=== PATIENT | female | born 1950 | race Caucasian/White ===

== ENCOUNTER 2016-12-12 22:52 | Inpatient (IN) | payer OTHER ==
[~2016-12-12] VITALS: Ht 157.5 cm; Wt 82.0 kg
[2016-12-12 23:41] VITALS: BP 124/65; RESP 18
[2016-12-12 23:42] VITALS: BMI 72.9
[2016-12-13] VITALS: BP 124/66; PULSE 64
[2016-12-13] MEDS ORDERED: ONDANSETRON 4 MG INJ IV PRN
[2016-12-13] MEDS ORDERED: NACL 0.9% 3 ML SYG IV SCH
[2016-12-13] MEDS ORDERED: ACETAMINOPHEN 325 MG TAB PO PRN
[2016-12-13] MEDS ORDERED: morphine 2 MG INJ IV PRN
[2016-12-13] MEDS ORDERED: DOCUSATE SODIUM 100 MG CAP PO PRN
--- NOTE | 2016-12-13 00:15 | HP ---
Date/Time of Note Date/Time of Note DATE: 12/13/16 TIME: 00:06 Assessment/Plan VTE Prophylaxis VTE Prophylaxis Intervention: LMWH Assessment/Plan Assessment/Plan 66 yo female with a past medical history of type II DM, CAD s/p PCI 2014, who presents with shortness of breath and pleuritic chest pain. 1. Sepsis 2/2 to [facility] PNA - fever 101.5/Resp > 20, with leukocytosis, will admit the patient to med/surg, c/w levaquin, f/u outside cultures, monitor trend 2. Type II DM - controlled - ISS/carb controlled diet 3. CAD s/p PCI - aspirin 4. GI ppx - pepcid 5. DVT ppx - lovenox answered all of her questions, as per clinical course. this history and physical took greater then 45 minutes to complete HPI/ROS Admit Date/Time Admit Date/Time Dec 13, 2016 at 12:06 am Hx of Present Illness 66 yo female with a past medical history of type II DM, CAD s/p PCI 2014, who presents with shortness of breath and pleuritic chest pain. The patient states that for the last 4 days, she has had fevers/chills, nausea with 3 episodes of NBNB vomitus, associated with the shortness of breath. He chest pain is worse with cough and deep inspiration. The cough is productive, with greenish sputum. Her grandchildren were ill recently. Also complains of dizziness, fatigue, muscle aches and malaise. She went to [facility] for initial work-up and transferred here to [facility] for further evaluation and treatment 2/2 to insurance purposes. She denies loss of consciousness, cardiac type chest pain, diarrhea, urinary/bowel irregularities or other constitutional symptoms. [facility] labs: WBC: 15.8, Gluc 189 CXR: RML infiltrate ROS 14 point review of systems completed, please refer to HPI for any positive findings PMH/Family/Social Past Medical History Medical History: coronary artery disease, diabetes Past Surgical History s/p C with PCI 2014 Family History Significant Family History: heart disease (father), diabetes (father), hypertension (father) Social History Alcohol Use: none Smoking Status: Never smoker Drug Use: none Exam/Review of Systems Vital Signs Vitals Vital Signs Date Time Temp Pulse Resp B/P Pulse Ox O2 Delivery O2 Flow Rate FiO2 12/12/16 23:41 98.8 64 18 124/65 94 Exam Exam Gen Jeyson: mild distress 2/2 chest discomfort, AAOx4, obese female HEENT: NC/AT, PERRLA, EOMI, no pharyngeal erythema, no tonsillar exudates, no lymphadenopathy, no JVD, no carotid bruits NECK: supple, no thyromegaly THORAX: symmetrical, no obvious deformities CV: S1S2, RRR, no M/G/R Lungs: rhonchi on Right > left, mild end expiratory wheezing noted, no crackles Abd: soft, NT/ND, +BS, no rebound, no guarding, neg HSM EXT: trace bilateral lower extremity edema, no ecchymosis, no clubbing, FROM Neuro: CN II-XII grossly intact, no focal deficits Psych: good mentation, alert and oriented, good mood and affect Skin: C/D/I Medications Medications Current Medications Ondansetron HCl (Zofran Inj) 4 mg Q6H PRN IV NAUSEA AND/OR VOMITING; Start at 00:00; Status UNV Acetaminophen (Tylenol Tab) 650 mg Q6H PRN PO PAIN LEVEL 1-3 OR FEVER; Start at 00:00; Status UNV Morphine Sulfate (morphine) 2 mg Q4H PRN IV SEVERE PAIN LEVEL 7-10; Start 12/13 at 00:00; Status UNV Docusate Sodium (Colace) 100 mg Q12H PRN PO CONSTIPATION; Start 12/13/16 at 00: 00; Status UNV Famotidine (Pepcid) 20 mg Q12 PO ; Start 12/13/16 at 09:00; Status UNV Enoxaparin Sodium 40 mg 40 mg DAILY SC ; Start 12/13/16 at 09:00; Status UNV Levofloxacin/ Dextrose (Levaquin 500mg/ D5W 100 ml (Pmx)) 100 ml @ 100 mls/hr Q24H IVPB ; Start 12/13/16 at 00:00; Status UNV LAKESHA RAMIREZ MD Dec 13, 2016 00:14
[2016-12-13 01:11] VITALS: Ht 157.5 cm; Wt 82.0 kg
[2016-12-13] MEDS ORDERED: DEXTROSE 50% 50 ML SYRINGE IV PRN ×2 (02:00)
[2016-12-13] MEDS ORDERED: GLUCAGON 1 MG INJ IM PRN (02:00)
[2016-12-13] MEDS ORDERED: GLUCOSE GEL 15 GRAM TUBE PO PRN ×2 (02:00)
[2016-12-13] MEDS ORDERED: GLUCOSE GEL 15 GRAM TUBE BUCCAL PRN (02:00)
[2016-12-13] MEDS: LEVOFLOXACIN 500MG/D5W (PMX) 100 ML IVPB SCH (02:12)
[2016-12-13 06:14] LABS: ADD SCAN DIFF NO
[2016-12-13 06:18] LABS: BASOPHILS % 0.4 % (0.0-2.0); EOSINOPHILS # 0.2 10^3/ul (0.0-0.5); EOSINOPHILS % 1.5 % (0.0-7.0); HEMATOCRIT 37.5 % (37.0-47.0); HEMOGLOBIN 11.9 g/dl (12.0-16.0); LYMPHOCYTES # 2.3 10^3/ul (0.8-2.9); LYMPHOCYTES % 21.1 % (15.0-51.0); MEAN CORPUSCULAR HEMOGLOBIN 27.5 pg (29.0-33.0); MEAN CORPUSCULAR HGB CONC 31.7 g/dl (32.0-37.0); MEAN CORPUSCULAR VOLUME 86.6 fl (82.0-101.0); MEAN PLATELET VOLUME 10.2 fl (7.4-10.4); MONOCYTE # 0.7 10^3/ul (0.3-0.9); MONOCYTES % 6.1 % (0.0-11.0); NEUTROPHIL # 7.7 10^3/ul (1.6-7.5); NEUTROPHILS % 70.5 % (39.0-77.0); PLATELET COUNT 205 10^3/UL (140-415); RED BLOOD COUNT 4.33 10^6/ul (4.20-5.40); RED CELL DISTRIBUTION WIDTH 13.6 % (11.5-14.5)
[2016-12-13 06:44] LABS: POTASSIUM 4.5 mmol/L (3.5-5.1)
[2016-12-13 06:47] LABS: CREATININE 0.65 mg/dl (0.44-1.00)
[2016-12-13 07:50] VITALS: BP 140/64; RESP 18
[2016-12-13] MEDS: FAMOTIDINE 20 MG TAB PO SCH ×2 (08:26→20:22)
[2016-12-13] MEDS: INSULIN ASPART [NOVOLOG] 3 ML PEN SC SCH ×4 (08:27→20:26)
[2016-12-13] MEDS: ENOXAPARIN 40 MG/0.4 ML SYG SC SCH (08:27)
[2016-12-13] MEDS: OSELTAMIVIR 75 MG CAP PO SCH ×2 (11:34→20:23)
[2016-12-13 14:03] LABS: ADD UMIC YES; URINE BILIRUBIN (Dip) NEGATIVE (NEGATIVE); URINE BLOOD (Dip) TRACE (NEGATIVE); URINE COLOR LT. YELLOW (YELLOW); URINE GLUCOSE (Dip) NEGATIVE (NEGATIVE); URINE KETONES (Dip) NEGATIVE (NEGATIVE); URINE LEUKOCYTE ESTERASE (Dip) NEGATIVE (NEGATIVE); URINE NITRITE (Dip) NEGATIVE (NEGATIVE); URINE TOTAL PROTEIN (Dip) NEGATIVE (NEGATIVE); URINE UROBILINOGEN (Dip) 1.0 E.U./dL (0.1-1.0)
[2016-12-13 14:24] LABS: SQUAMOUS EPITHELIAL CELL,UR FEW
[2016-12-13] MEDS ORDERED: ASPI81TA3 PO (17:41)
[2016-12-13] MEDS ORDERED: ATOR80TA75 PO (17:42)
[2016-12-13] MEDS ORDERED: METF850T PO (17:47)
[2016-12-13] MEDS ORDERED: GLIP5TAB13 PO (17:47)
[2016-12-13] MEDS ORDERED: LANT3I SC (17:52)
[2016-12-13] MEDS ORDERED: INSU100I7 SQ (17:52)
[2016-12-13] MEDS ORDERED: METO-429 PO (17:52)
[2016-12-13] MEDS ORDERED: LEVO25TA53 PO (17:52)
[2016-12-13 18:22] LABS: ALBUMIN 3.8 g/dl (3.3-4.9)
[2016-12-13 18:25] LABS: BILIRUBIN,INDIRECT 0.3 mg/dl (0-1.1); BILIRUBIN,TOTAL 0.3 mg/dl (0.2-1.3); TOTAL PROTEIN 6.7 g/dl (6.1-8.1)
[2016-12-13] MEDS ORDERED: INSULIN GLARGINE [LANtus] 3 ML PEN SC SCH (19:30)
[2016-12-13] MEDS: metFORMIN 850 MG TAB PO SCH (19:39)
[2016-12-13] MEDS: ATORVASTATIN 40 MG TAB PO SCH (20:23)
[2016-12-13] MEDS: METOPROLOL 50 MG TAB PO SCH (20:23)
[2016-12-13 22:27] VITALS: BP 131/63; RESP 18
[2016-12-14] MEDS: LEVOFLOXACIN 500MG/D5W (PMX) 100 ML IVPB SCH (02:00)
[2016-12-14] MEDS: ACCUCHECK XX SCH (02:06)
[2016-12-14 05:29] LABS: ADD SCAN DIFF NO
[2016-12-14 05:38] LABS: BASOPHILS % 0.4 % (0.0-2.0); EOSINOPHILS # 0.3 10^3/ul (0.0-0.5); EOSINOPHILS % 4.2 % (0.0-7.0); HEMATOCRIT 37.5 % (37.0-47.0); LYMPHOCYTES # 3.2 10^3/ul (0.8-2.9); LYMPHOCYTES % 39.9 % (15.0-51.0); MEAN CORPUSCULAR HEMOGLOBIN 27.6 pg (29.0-33.0); MEAN CORPUSCULAR VOLUME 86.2 fl (82.0-101.0); MEAN PLATELET VOLUME 9.8 fl (7.4-10.4); MONOCYTE # 0.5 10^3/ul (0.3-0.9); MONOCYTES % 5.8 % (0.0-11.0); NEUTROPHIL # 3.9 10^3/ul (1.6-7.5); NEUTROPHILS % 49.4 % (39.0-77.0); PLATELET COUNT 203 10^3/UL (140-415); RED BLOOD COUNT 4.35 10^6/ul (4.20-5.40); RED CELL DISTRIBUTION WIDTH 13.5 % (11.5-14.5)
[2016-12-14 05:55] LABS: POTASSIUM 4.2 mmol/L (3.5-5.1)
[2016-12-14 05:58] LABS: CALCIUM 9.3 mg/dl (8.4-10.2); CREATININE 0.58 mg/dl (0.44-1.00); MAGNESIUM 1.9 mg/dl (1.7-2.5)
[2016-12-14 05:59] LABS: CHOL/HDL RATIO 4.5 RATIO
[2016-12-14] MEDS: LEVOTHYROXINE 25 MCG TAB PO SCH (06:18)
[2016-12-14] MEDS ORDERED: glipiZIDE 5 MG TAB PO SCH (07:30)
[2016-12-14] MEDS: ENOXAPARIN 40 MG/0.4 ML SYG SC SCH (08:14)
[2016-12-14] MEDS: FAMOTIDINE 20 MG TAB PO SCH ×2 (08:15→22:16)
[2016-12-14] MEDS: metFORMIN 850 MG TAB PO SCH ×2 (08:15→18:48)
[2016-12-14] MEDS: OSELTAMIVIR 75 MG CAP PO SCH ×2 (08:15→22:16)
[2016-12-14] MEDS: INSULIN ASPART [NOVOLOG] 3 ML PEN SC SCH ×4 (08:15→22:15)
[2016-12-14] MEDS: METOPROLOL 50 MG TAB PO SCH ×2 (08:16→22:16)
[2016-12-14] MEDS: ASPIRIN 81 MG TAB PO SCH (08:38)
[2016-12-14 09:00] VITALS: BP 115/58; RESP 17
[2016-12-14] MEDS ORDERED: LEVO500T10 PO (10:05)
--- NOTE | 2016-12-14 10:06 | PDOCDIS ---
Discharge Instructions DIAGNOSIS Discharge Diagnosis: Influenza CONDITION Patient Condition: Stable HOME CARE INSTRUCTIONS: Special Diet: low fat,low cholesterol ACTIVITY: Activity Restrictions: Slowly Increase Activity Rest between Activity OTHER ORDERS: Other Orders: Followup with your primary doctor within the next 1-2 weeks. If you don't have one please let someone know, we can give you resources that may help you pick one. You may also call your insurance company to assign one to you. Review your medication list with your nurse before leaving and if you need new prescriptions please let your nurse know. I may have made changes to your home medications or given you new prescriptions , please let your primary doctor know as well. Stay compliant with your medications and report any side effects to your PCP or pharmacist. Return to the ER if you have any concerns and cannot reach your doctors or call your insurance company, they usually have a nurse that can help you. REFUGIO MURPHY Dec 14, 2016 10:06
[2016-12-14] MEDS ORDERED: UDROBDM PO (10:09)
--- NOTE | 2016-12-14 14:08 | PN ---
Date/Time of Note Date/Time of Note DATE: 12/14/16 TIME: 13:57 Assessment/Plan VTE Prophylaxis VTE Prophylaxis Intervention: LMWH Lines/Catheters IV Catheter Type (from [facility]): [facility] Lock Urinary Cath still in place: No Assessment/Plan Assessment/Plan 66 yo female with a past medical history of type II DM, CAD s/p PCI 2014, who presents with shortness of breath and pleuritic chest pain. 1. Sepsis 2/2 to RML PNA and Flu: improved 2. Type II DM -A1C:8.5: suboptimal control 3. CAD s/p PCI - aspirin 4. Influenza and B positive 5. dyslipidemia 6. Hypothyroidism 7. Mild hemoptysis likely 2/2 intractable coughing + Lovenox PLAN: * Hold Lovenox for now / use SCds only for prophylaxis * Positive bC likely contaminant , will repeat * Continue Influenza precautions and Tamiflu * Add low dose ARB to regimen * Add antitussives to regimen * Continue supportive care and abx * Plan for d/c tomorrow if patient remains stable and fever free. PROPHYLAXIS: SCDs / Pepcid Subjective 24 Hr Interval Summary Free Text/Dictation Patient seen and examined. feels much better but still feels ill having some hemoptysis with coughing Exam/Review of Systems Vital Signs Vitals Vital Signs Date Time Temp Pulse Resp B/P Pulse Ox O2 Delivery O2 Flow Rate FiO2 12/14/16 09:00 98.3 60 17 115/58 95 Intake and Output 12/13/16 12/13/16 12/14/16 15:00 23:00 07:00 Intake Total 720 ml 1060 ml Balance 720 ml 1060 ml Exam Constitutional: alert, oriented, other (ill lookin), No distress Psych: anxiety Head: normocephalic Eyes: PERRL, No icteric ENMT: mucosa pink and moist Neck: supple Respiratory: crackles/rales (mild R lung base), diminished breath sounds (R >>L ) Cardiovascular: regular rate and rhythm, No murmurs/extra sounds Gastrointestinal: bowel sounds, non-tender, soft Extremities: No edema Neurological: nl mental status, nl speech Skin: No rash or lesions Results Result Diagram: 12/14/165 12/14/16 042 Results 24 hrs Laboratory Tests Test 12/13/16 17:21 12/13/16 20:21 12/14/16 02:01 12/14/16 04:25 Bedside Glucose 245 H 264 H 206 Anion Gap 17 H Basophils # 0.0 Basophils % 0.4 Blood Urea Nitrogen 13 Calcium Level 9.3 Carbon Dioxide Level 24 Chloride Level 104 Cholesterol Level 127 Cholesterol/HDL Ratio 4.5 Creatinine 0.58 Eosinophils # 0.3 Eosinophils % 4.2 Glucose Level 204 HDL Cholesterol 28 L Hematocrit 37.5 Hemoglobin 12.0 LDL Cholesterol, Calculated 71 Lymphocytes # 3.2 H Lymphocytes % 39.9 Magnesium Level 1.9 Mean Corpuscular Hemoglobin 27.6 L Mean Corpuscular Hemoglobin Concent 32.0 Mean Corpuscular Volume 86.2 Mean Platelet Volume 9.8 Monocytes # 0.5 Monocytes % 5.8 Neutrophils # 3.9 Neutrophils % 49.4 Nucleated Red Blood Cells # 0.0 Nucleated Red Blood Cells % 0.0 Platelet Count 203 Potassium Level 4.2 Red Blood Count 4.35 Red Cell Distribution Width 13.5 Sodium Level 141 Triglycerides Level 142 White Blood Count 8.0 # Test 12/14/16 07:35 12/14/16 12:16 Bedside Glucose 203 156 Medications Medications Current Medications Ondansetron HCl (Zofran Inj) 4 mg Q6H PRN IV NAUSEA AND/OR VOMITING; Start at 00:00 Acetaminophen (Tylenol Tab) 650 mg Q6H PRN PO PAIN LEVEL 1-3 OR FEVER; Start at 00:00 Morphine Sulfate (morphine) 2 mg Q4H PRN IV SEVERE PAIN LEVEL 7-10 Last administered on 12/13/16 08:01; Admin Dose 2 MG; Start 12/13/16 at 00:00 Docusate Sodium (Colace) 100 mg Q12H PRN PO CONSTIPATION; Start 12/13/16 at 00: 00 Famotidine 20 mg 20 mg Q12 PO Last administered on 12/14/16 08:15; Admin Dose 20 MG; Start 12/13/16 at 09:00 Levofloxacin/ Dextrose (Levaquin 500mg/ D5W 100 ml (Pmx)) 100 ml @ 100 mls/hr Q24H IVPB Last administered on 12/14/16 02:00; Admin Dose 100 MLS/HR; Start at 02:00 Diagnostic Test (Pha) (Accucheck) XX Last administered on 12/14/16 02: 06; Admin Dose 1 EA; Start 12/14/16 at 02:00 Miscellaneous Information 1 ea NOTE XX ; Start 12/13/16 at 02:00 Glucose (Glutose) 15 gm Q15M PRN PO DECREASED GLUCOSE; Start 12/13/16 at 02:00 Glucose (Glutose) 22.5 gm Q15M PRN PO DECREASED GLUCOSE; Start 12/13/16 at 02: 00 Dextrose (D50w Syringe) 25 ml Q15M PRN IV DECREASED GLUCOSE; Start 12/13/16 at 02:00 Dextrose (D50w Syringe) 50 ml Q15M PRN IV DECREASED GLUCOSE; Start 12/13/16 at 02:00 Glucagon (Glucagen) 1 mg Q15M PRN IM DECREASED GLUCOSE; Start 12/13/16 at 02:00 Glucose (Glutose) 15 gm Q15M PRN BUCCAL DECREASED GLUCOSE; Start 12/13/16 at 02 :00 Oseltamivir Phosphate (Tamiflu) 75 mg BID PO Last administered on 12/14/16 08: 15; Admin Dose 75 MG; Start 12/13/16 at 11:30; Stop 12/18/16 at 11:29 Aspirin (Aspirin) 81 mg DAILY PO Last administered on 12/14/16 08:38; Admin Dose 81 MG; Start 12/14/16 at 09:00 Atorvastatin Calcium (Lipitor) 40 mg QHS PO Last administered on 12/13/16 20: 23; Admin Dose 40 MG; Start 12/13/16 at 21:00 Insulin Glargine (Lantus) 25 unit QHS SC Last administered on 12/13/16 19:40; Admin Dose 25 UNIT; Start 12/13/16 at 19:30 Metoprolol Tartrate (Lopressor) 50 mg BID PO Last administered on 12/14/16 08: 16; Admin Dose 50 MG; Start 12/13/16 at 21:00 REFUGIO MURPHY Dec 14, 2016 14:08
[2016-12-14] MEDS: DOCUSATE SODIUM 100 MG CAP PO SCH ×2 (14:22→22:15)
[2016-12-14] MEDS: GUAIFENESIN/DM 5ML CUP PO SCH ×2 (14:23→22:31)
[2016-12-14] MEDS ORDERED: GUAIFENESIN/DM 5ML CUP PO PRN ×2 (14:30)
[2016-12-14] MEDS: ALBUTEROL 0.083% (NEB) 2.5 MG/3 ML AMP HHN SCH ×2 (18:24→21:00)
[2016-12-14] MEDS ORDERED: ALBUTEROL 0.083% (NEB) 2.5 MG/3 ML AMP HHN SCH (18:30)
--- NOTE | 2016-12-14 19:31 | DS ---
DATE OF ADMISSION: 12/12/2016 DATE OF DISCHARGE: 12/14/2016 FINAL DIAGNOSES: 1. Influenza influenzae A and B positive. 2. Right middle lobe pneumonia. 3. Diabetes mellitus type 2. 4. Dyslipidemia. 5. High blood pressure with good control. 6. Chronic coronary artery disease, status post percutaneous coronary intervention in the past. 7. Sepsis secondary to influenza and right middle lobe pneumonia, now resolved. CONSULTANTS ON THE CASE: None. INTERVENTIONS: Aggressive IV antibiotic therapy and commencement of Tamiflu. DISPOSITION: Home. FOLLOWUP: Primary care physician within 1 to 2 weeks. DISCHARGE MEDICATIONS: For a complete list, please review the patient's chart. The patient will be sent home on: 1. Oral Levaquin. 2. Tamiflu. In addition to her home medications. RECOMMENDED DIET: 1800 ADA. ACTIVITIES: As tolerated. Dictated By: REFUGIO MURPHY MD BA/NTS Conf#: [id number] DID#: [id number]
[2016-12-14 20:00] VITALS: BP 140/74; RESP 17
[2016-12-14] MEDS ORDERED: INSULIN GLARGINE [LANtus] 3 ML PEN SC SCH (21:00)
[2016-12-14] MEDS: ATORVASTATIN 40 MG TAB PO SCH (22:16)
[2016-12-15] MEDS: ALBUTEROL 0.083% (NEB) 2.5 MG/3 ML AMP HHN SCH ×4 (01:00→13:00)
[2016-12-15] MEDS: LEVOFLOXACIN 500MG/D5W (PMX) 100 ML IVPB SCH (02:05)
[2016-12-15] MEDS: ACCUCHECK XX SCH (02:05)
[2016-12-15 05:40] LABS: ADD SCAN DIFF NO
[2016-12-15 05:43] LABS: BASOPHILS % 0.3 % (0.0-2.0); EOSINOPHILS # 0.2 10^3/ul (0.0-0.5); EOSINOPHILS % 1.9 % (0.0-7.0); HEMATOCRIT 39.9 % (37.0-47.0); HEMOGLOBIN 12.8 g/dl (12.0-16.0); LYMPHOCYTES # 2.5 10^3/ul (0.8-2.9); LYMPHOCYTES % 22.7 % (15.0-51.0); MEAN CORPUSCULAR HEMOGLOBIN 27.4 pg (29.0-33.0); MEAN CORPUSCULAR HGB CONC 32.1 g/dl (32.0-37.0); MEAN CORPUSCULAR VOLUME 85.3 fl (82.0-101.0); MEAN PLATELET VOLUME 9.7 fl (7.4-10.4); MONOCYTE # 0.4 10^3/ul (0.3-0.9); MONOCYTES % 3.8 % (0.0-11.0); NEUTROPHIL # 7.8 10^3/ul (1.6-7.5); NEUTROPHILS % 70.8 % (39.0-77.0); PLATELET COUNT 214 10^3/UL (140-415); RED BLOOD COUNT 4.68 10^6/ul (4.20-5.40); RED CELL DISTRIBUTION WIDTH 13.2 % (11.5-14.5); WHITE BLOOD COUNT 10.9 10^3/ul (4.8-10.8)
[2016-12-15 06:03] LABS: POTASSIUM 4.5 mmol/L (3.5-5.1)
[2016-12-15 06:05] LABS: CREATININE 0.64 mg/dl (0.44-1.00)
[2016-12-15] MEDS: LEVOTHYROXINE 25 MCG TAB PO SCH ×2 (06:05→08:31)
[2016-12-15] MEDS: GUAIFENESIN/DM 5ML CUP PO SCH ×2 (06:05→13:58)
[2016-12-15 06:06] LABS: CALCIUM 9.7 mg/dl (8.4-10.2)
[2016-12-15] MEDS: metFORMIN 850 MG TAB PO SCH ×2 (08:00→08:19)
[2016-12-15] MEDS: INSULIN ASPART [NOVOLOG] 3 ML PEN SC SCH ×2 (08:21→11:36)
[2016-12-15] MEDS: ASPIRIN 81 MG TAB PO SCH (08:22)
[2016-12-15] MEDS: FAMOTIDINE 20 MG TAB PO SCH (08:23)
[2016-12-15] MEDS: OSELTAMIVIR 75 MG CAP PO SCH (08:24)
[2016-12-15] MEDS: METOPROLOL 50 MG TAB PO SCH (08:24)
[2016-12-15 08:26] VITALS: BP 129/76; RESP 18
[2016-12-15] MEDS: DOCUSATE SODIUM 100 MG CAP PO SCH (09:00)
[2016-12-15] MEDS ORDERED: LOSARTAN 25 MG TAB PO SCH (09:00)
[2016-12-15] MEDS ORDERED: OSLT75C PO (16:20)
--- NOTE | 2016-12-15 16:30 | DS ---
Date/Time of Note Date/Time of Note DATE: 12/15/16 TIME: 16:23 Discharge Summary Admission/Discharge Info Admit Date/Time Dec 12, 2016 at 22:52 Discharge Date/Time Final Diagnosis 1. Influenza influenzae A and B positive - on Tamiflu. 2. Right middle lobe pneumonia - on Levaquin. 3. Diabetes mellitus type 2. 4. Dyslipidemia. 5. High blood pressure with good control. 6. Chronic coronary artery disease, status post percutaneous coronary intervention in the past. 7. Sepsis secondary to influenza and right middle lobe pneumonia, now resolved. Patient Condition: Stable Hospital Course 66 yo female with a past medical history of type II DM, CAD s/p PCI 2014, who presents with shortness of breath and pleuritic chest pain. The patient states that for the last 4 days, she has had fevers/chills, nausea with 3 episodes of NBNB vomitus, associated with the shortness of breath. He chest pain is worse with cough and deep inspiration. The cough was productive, with greenish sputum. Her grandchildren were ill recently. Also complains of dizziness, fatigue, muscle aches and malaise. She went to [facility] for initial work-up and transferred here to [facility] for further evaluation and treatment 11/20 to insurance purposes. She denies loss of consciousness, cardiac type chest pain, diarrhea, urinary/bowel irregularities or other constitutional symptoms. CXR showed RML infiltrate. Pt started on Tamiflu for positive flu A test. Pt ambulating, tolerating PO diet, less cough and less SOb now, no fevers in last 24 hrs. She will be discharged home today in an improved condition. Will follow up with her DM doctor and PMD in clinic in 1-2 weeks. Home Meds Active Scripts Oseltamivir Phosphate* (Tamiflu*) 75 Mg Capsule, 75 MG PO BID for 5 Days, #10 CAP Prov:FLASH WAN S. 12/15/16 Guaifenesin-Dextromethorphan* (Robitussin* DM) 100MG/10MG/5ML Syrup, 10 ML PO Q4H Y for COUGH, #150 ML Prov:REFUGIO MURPHY 12/14/16 Levofloxacin* (Levofloxacin*) 500 Mg Tablet, 500 MG PO DAILY for 5 Days, TAB Prov:REFUGIO MURPHY 12/14/16 Reported Medications Insulin Glargine* (Lantus*) 100 Unit/Ml Soln, 25 UNIT SC QAM, VIAL 12/13/16 Insulin Lispro Protamin/Lispro (Humalog Mix 75-25 Kwikpen) 100 Unit/1 Ml Insuln.pen, 25 UNIT SQ QHS 12/13/16 Levothyroxine Sodium* (Levothyroxine Sodium*) 25 Mcg Tablet, 25 MCG PO BEFORE BREAKFAST, TAB 12/13/16 Metoprolol Tartrate* (Lopressor*) 50 Mg Tab, 50 MG PO BID, TAB 12/13/16 Glipizide* (Glipizide*) 5 Mg Tablet, 5 MG PO AC BREAKFAST, TAB 12/13/16 Metformin Hcl* (Metformin Hcl*) 850 Mg Tablet, 850 MG PO WITH BREAKFAST DINNE, # 60 TAB 12/13/16 Atorvastatin* (Atorvastatin*) 80 Mg Tablet, 40 MG PO QHS, TAB 12/13/16 Aspirin* (Aspirin* Chew) 81 Mg Tab.chew, 81 MG PO DAILY, TAB.CHEW 12/13/16 Pending Labs Laboratory Tests Test 12/14/16 16:52 12/14/16 20:11 12/15/16 02:05 12/15/16 04:47 Bedside Glucose 184mg/dL (70-220) 218mg/dL (70-220) 171mg/dL (70-220) Anion Gap 19 (8-16) Basophils # 0.010^3/ul (0.0-0.1) Basophils % 0.3% (0.0-2.0) Blood Urea Nitrogen 18mg/dl (7-20) Calcium Level 9.7mg/dl (8.4-10.2) Carbon Dioxide Level 25mmol/L (21-31) Chloride Level 101mmol/L (97-110) Creatinine 0.64mg/dl (0.44-1.00) Eosinophils # 0.210^3/ul (0.0-0.5) Eosinophils % 1.9% (0.0-7.0) Glucose Level 236mg/dl (70-220) Hematocrit 39.9% (37.0-47.0) Hemoglobin 12.8g/dl (12.0-16.0) Lymphocytes # 2.510^3/ul (0.8-2.9) Lymphocytes % 22.7% (15.0-51.0) Mean Corpuscular Hemoglobin 27.4pg (29.0-33.0) Mean Corpuscular Hemoglobin Concent 32.1g/dl (32.0-37.0) Mean Corpuscular Volume 85.3fl (82.0-101.0) Mean Platelet Volume 9.7fl (7.4-10.4) Monocytes # 0.410^3/ul (0.3-0.9) Monocytes % 3.8% (0.0-11.0) Neutrophils # 7.810^3/ul (1.6-7.5) Neutrophils % 70.8% (39.0-77.0) Nucleated Red Blood Cells # 0.010^3/ul (0.0-0.0) Nucleated Red Blood Cells % 0.0/100WBC (0.0-0.0) Platelet Count 12022^3/UL (140-415) Potassium Level 4.5mmol/L (3.5-5.1) Red Blood Count 4.6810^6/ul (4.20-5.40) Red Cell Distribution Width 13.2% (11.5-14.5) Sodium Level 140mmol/L (135-144) White Blood Count 10.910^3/ul (4.8-10.8) Test 12/15/16 07:34 12/15/16 11:07 Bedside Glucose 245mg/dL (70-220) 202mg/dL (70-220) FLASH WAN Dec 15, 2016 16:29
--- NOTE | 2016-12-16 13:17 | RADRPT ---
Echocardiogram Report Patient Name: CHAVEZ SANCHEZ Gender: Female Date: 1950 Study Date: 15-Dec-2016 Head Automatic Sawyer: Avinash Dupree [facility] Location: 2247 Ref. Physician: REFUGIO MURPHY Quality: Good Procedures: Transthoracic echocardiogram with complete 2D, M-Mode, and doppler examination. Indications: Coronary Artery Disease. Shortness of breath. 2D/M Mode Doppler Measurement Value Normal Ranges Measurement Value Normal Ranges LVIDd 2D 5.0 3.5 - 5.6 cm AV Peak Venkat 1.7 m/sec LVIDs 2D 2.1 2.1 - 4.1 cm AV Peak PG 11.6 mmHg LVPWd 2D 1.1 0.6 - 1.1 cm LVOT Peak Venkat 1.3 m/sec IVSd 2D 1.1 0.6 - 1.1 cm LVOT Peak PG 6.3 mmHg AoR Diam 2D 2.0 2.0 - 3.7 cm MV E Peak Venkat 0.8 m/sec EDV 2D 116.0 cm3 MV A Peak Venkat 0.9 m/sec ESV 2D 8.9 cm3 MV E/A 0.9 LA Dimen 2D 3.0 2.3 - 4.0 cm MV Decel Time 150 msec MV Decel [place] 5 MV E/A 0.9 TR Peak Venkat 2.5 m/sec TR Peak PG 24.4 mmHg RVSP 27.0 mmHg Findings Left Ventricle: Normal left ventricular systolic function. Normal left ventricular cavity size. Mild concentric left ventricular hypertrophy. Ejection fraction is visually estimated at 65 %. Tissue Doppler/Mitral Doppler indices are consistent with impaired relaxation (Stage I diastolic dysfunction). Right Ventricle: Normal right ventricular size. Normal right ventricular systolic function. Left Atrium: The left atrium is normal in size. Right Atrium: The right atrium is normal in size. Mitral Valve: Mitral valve leaflets appear mildly thickened. Mild mitral annular calcification. Trace mitral regurgitation. Aortic Valve: Normal appearance of the aortic valve. No significant aortic stenosis or insufficiency. Tricuspid Valve: Normal appearance of the tricuspid valve. Estimated peak PA systolic pressure 27 mmHg. There is trace tricuspid regurgitation. Pulmonic Valve: Normal pulmonic valve appearance. Pericardium: Normal pericardium with no significant pericardial effusion. Aorta: Normal aortic root. IVC: Normal size and normal respiratory collapse consistent with normal right atrial pressure. Conclusions 1.Normal left ventricular systolic function. Normal left ventricular cavity size. Mild concentric left ventricular hypertrophy. Ejection fraction is visually estimated at 65 %. Tissue Doppler/Mitral Doppler indices are consistent with impaired relaxation (Stage I diastolic dysfunction). 2.Mitral valve leaflets appear mildly thickened. Mild mitral annular calcification. Trace mitral regurgitation. 3.Normal appearance of the aortic valve. No significant aortic stenosis or insufficiency. 4.Normal appearance of the tricuspid valve. Estimated peak PA systolic pressure 27 mmHg. There is trace tricuspid regurgitation. Electronically Signed By: Marvin Leslie 16-Dec-2016 13:16:35 -0800 Patient Name: CHAVEZ SANCHEZ Study Date: 15-Dec-[id number]
== END 2016-12-15 17:37 | disposition home or self-care (01) | DRG 871 ==
LOC: PP2 22:52
PROVIDERS: ADMIT Student in an Organized Health Care Education/Training Program; ATTEND Student in an Organized Health Care Education/Training Program
DX: A41.9 Sepsis, unspecified organism (principal); J11.00 Influenza due to unidentified influenza virus with unspecified type of pneumonia; E11.9 Type 2 diabetes mellitus without complications; Z79.4 Long term (current) use of insulin; I10 Essential (primary) hypertension; E78.5 Hyperlipidemia, unspecified; I25.10 Atherosclerotic heart disease of native coronary artery without angina pectoris; Z95.5 Presence of coronary angioplasty implant and graft
CPT/HCPCS: 80048; 80061; 80076; 81001; 81003; 82962; 83036; 83735; 85025; 87040; 87400; 93306; 94640; 94664; J1650; J1815; J1956; J2270; J2405